=== PATIENT | female | born 1990 | race Caucasian/White ===

== ENCOUNTER 2023-01-12 08:00 | Outpatient (CLI) | payer OTHER | END 2023-01-12 23:59 | disposition home or self-care (01) | LOC: LAB.N 08:00 | PROVIDERS: ATTEND Physician Assistant | DX: R07.0 Pain in throat (principal) | CPT/HCPCS: 87070 ==

== ENCOUNTER 2023-06-02 04:04 | Outpatient (CLI) | payer OTHER | END 2023-06-02 23:59 | disposition critical access hospital (66) | LOC: EMS 04:04 | DX: I16.9 Hypertensive crisis, unspecified (principal); R51.9 Headache, unspecified; R07.9 Chest pain, unspecified; R20.0 Anesthesia of skin; R11.0 Nausea | CPT/HCPCS: A0425; A0427 ==

== ENCOUNTER 2023-06-02 04:43 | Emergency (ER) | payer OTHER ==
--- NOTE | 2023-06-02 04:42 | ED Physician Documentation ---
History of Present Illness - Stated complaint Stated Complaint: HIGH BP - History obtained from History obtained from: Patient - Additonal information Additional information: HPI from patient. COLE. Patient woke at approximately 3 AM this morning with generalized headache, diffuse anterior abdominal pain, nausea and vomiting, and anterior chest pain. She took her blood pressure and had high readings (200s/120s). EMS noted 180s/120s en route. FSBS for EMS 102. Patient says her abdominal pain has some similarities to previous episodes of abdominal pain that have been attributed to ulcerative colitis flares. Patient receives infusions of Entyvio every four weeks but her most recent infusion was overdue by one week due to scheduling problem with infusion nurse; patient thinks her abdominal pain might be related to this. Review of Systems Constitutional: reports: Reviewed and negative Cardiac: reports: Chest pain / pressure. denies: Palpitations Respiratory: reports: Dyspnea. denies: Cough GI: reports: Abdominal Pain, Nausea, Vomiting. denies: Constipation, Diarrhea : denies: Now EGA Neurologic: reports: Headache PD PAST MEDICAL HISTORY - Past Medical History Past Medical History: Yes Other Past Medical History: ulcerative colitis - Allergies Allergies/Adverse Reactions: Allergies Allergy/AdvReac Type Severity Reaction Status Date / Time latex Allergy Unknown Verified 06/02/23 05:46 PD ED PE NORMAL - Vitals Vital signs reviewed: Yes - General General: Alert and oriented X 3, No acute distress, Well developed/nourished - HEENT HEENT: Moist mucous membranes - Neck Neck: Supple, no meningeal sign - Cardiac Cardiac: RRR, No murmur - Respiratory Respiratory: No respiratory distress, Clear bilaterally - Abdomen Abdomen: Soft, Non distended, Other (TTP BLQ, more pronounced LLQ; no rebound nor guarding) - Back Back: No CVA TTP - Derm Derm: Normal color, Warm and dry Results - Vitals Vitals: Vital Signs - 24 hr 06/02/23 06/02/23 06/02/23 04:51 05:00 06:30 Temperature 35.8 C L Heart Rate 78 79 74 Respiratory 22 18 18 Rate Blood Pressure 160/106 H 149/108 H 136/104 H O2 Saturation 99 99 94 06/02/23 08:00 Temperature Heart Rate 85 Respiratory 18 Rate Blood Pressure 144/94 H O2 Saturation 99 Oxygen O2 Source Room air - EKG (time done) No standard instances EKG releavant findings:: EKG personally interpreted by author of this note. Relevant findings are: Rate: Rate (enter#) (79) Rhythm: NSR [place]: Normal Intervals: Normal IN QRS: Normal Ischemia: Normal ST segments - Labs Labs: Laboratory Tests 06/02/23 06/02/23 06/02/23 05:53 05:55 05:55 WBC 9.1 RBC 4.43 Hgb 12.2 Hct 37.4 MCV 84.4 MCH 27.5 MCHC 32.6 RDW 13.6 Plt Count 367 MPV 9.5 Neut # (Auto) 6.1 Lymph # (Auto) 2.1 Butts # (Auto) 0.8 Eos # (Auto) 0.2 Baso # (Auto) 0.1 Absolute Nucleated RBC 0.00 Nucleated RBC % 0.0 Sodium 138 Potassium 3.7 Chloride 104 Carbon Dioxide 28 Anion Gap 6.0 BUN 9 Creatinine 0.6 Estimated GFR (MDRD) 115 Glucose 109 H Calcium 9.7 Total Bilirubin 0.3 AST 14 ALT 11 Alkaline Phosphatase 112 Total Protein 7.5 Albumin 4.4 Globulin 3.1 Albumin/Globulin Ratio 1.4 Lipase 10 L Urine Color YELLOW Urine Clarity CLEAR Urine pH 7.0 Ur Specific [place] 1.010 Urine Protein NEGATIVE Urine Glucose (UA) NEGATIVE Urine Ketones NEGATIVE Urine Occult Blood NEGATIVE Urine Nitrite NEGATIVE Urine Bilirubin NEGATIVE Urine Urobilinogen 0.2 (NORMAL) Ur Leukocyte Esterase NEGATIVE Ur Microscopic Review NOT INDICATED Urine Culture Comments NOT INDICATED Urine HCG, Qual NEGATIVE - Rads (name of study) chest xray Relevant Findings:: Prelim report reviewed, See rad report CT A/P with IV contrast Relevant Findings:: Prelim report reviewed, See rad report PD Medical Decision Making - ED course Complexity details: reviewed results, re-evaluated patient, considered differential, d/w patient ED course: Normal CBC, ER abdominal panel, and UA. Negative UHCG. CT A/P with IV contrast is without concerning or diagnostic finding; specifically, no evidence of infectious or inflammatory process, urinary/ureteral obstruction, intestinal inflammation or obstruction. Patient given 4mg IV morphine early in stay and had good relief of her pain with this. She declined zofran, having had received a dose by EMS en route to ED. Late in ED stay, she had gradual recurrence of abdominal pain and nausea, and thus given redoses of these medications (4mg IV morphine sulfate IV and 4mg IV zofran). Results d/w patient. Cause of her symptoms is not apparent at this time. She reports feeling much better and is comfortable with d/c home, will follow up with her GI specialist as well as PMD regarding her BP. Note that her BP readings declined adequately prior to d/c with 140s/90s prior to d/c. Return precautions discussed. Departure - Departure Disposition: Home, Self Care Clinical Impression: Abdominal pain Qualifiers: Abdominal location: generalized Qualified Code(s): R10.84 - Generalized abdominal pain Condition: Good Instructions: ED Abdominal Pain Female Non-Specific Abdominal Pain, ED Hypertension Conf Out Of Control Comments: There were no concerning nor diagnostic findings on tonight's tests including the blood tests, urinalysis, and the CT scan of your abdomen and pelvis. The EKG also was unremarkable. The cause of your symptoms is not apparent at this time. Follow-up with your primary care provider for reevaluation, next available appointment. The follow- up is not only for reevaluation of the symptoms you experienced today, but also to reevaluate your hypertension and whether your current blood pressure medications are adequately controlling the hypertension. Forms: PCP List Discharge Date/Time: 06/02/23 08:45
--- OUTSIDE RECORDS SUMMARY | 2023-06-02 05:06 | EXTERNAL MEDICAL SUMMARY RPT | Continuity of Care Document ---
Author Name Unknown Address [address] [place] [address] Phone Organization [facility] Address [address] [place] [address] Phone Care Team Providers Care Assistant Professor Of Philosophy Name Role Phone Tanner Duran Unavailable Unavailable Allergies and Intolerances date description facility reaction severity (no date) Mild [facility] (no reaction) (no se verity) (no date) Latex, Natural Rubber [facility] (no react ion) (no severity) Medications date description facility 2023-04-01 00:00 Metoclopramide [facility] 2023-03-17 00:00 Duloxetine [facility] 2023-04-01 00:00 Hydrocodone-Acetaminophen [facility] 2023-03-17 00:00 Labetalol [facility] Problems date description facility 2023-03-17 00:00 Leukocytosis [facility] 2023-03-17 17:14 Elevated white blood cell count , unspecified [facility] 2023-03-17 17:14 Anxiety disorder, unspecified I [facility] 2023-03-17 17:14 Essential (primary) hypertensio n [facility] 2023-03-17 17:14 Ulcerative colitis, unspecified, without complications [facility] 2023-04-01 00:00 Abdominal pain [facility] Procedures date description facility 2023-04-01 00:00 CT abdomen pelvis w [facility] Results/Labs test date facility value unit notes Social History date description facility 2023-03-17 00:00 Never smoked tobacco (finding) [facility] 2023-04-01 00:00 Never smoked tobacco (finding) [facility] Vital Signs date measurement value units 2023-03-17 00:00 BMI 39.2 kg/m2 2023-03-17 00:00 BP_diastolic 100 mmHg 2023-03-17 00:00 BP_systolic 130 mmHg 2023-03-17 00:00 heart_rate 84 /min 2023-03-17 00:00 height_metric 157.48 cm 2023-03-17 00:00 height_standard 62 in 2023-03-17 00:00 o2_saturation 98 % 2023-03-17 00:00 respiration_rate 16 /min 2023-03-17 00:00 temperature_metric 36.56 C 2023-03-17 00:00 temperature_standard 97.8 F 2023-03-17 00:00 weight_metric 97.23 kg 2023-03-17 00:00 weight_standard 214.36 lb 2023-04-01 00:00 BMI 37.5 kg/m2 2023-04-01 00:00 BP_diastolic 84 mmHg 2023-04-01 00:00 BP_systolic 136 mmHg 2023-04-01 00:00 heart_rate 98 /min 2023-04-01 00:00 height_metric 157.48 cm 2023-04-01 00:00 height_standard 62 in 2023-04-01 00:00 o2_saturation 96 % 2023-04-01 00:00 respiration_rate 16 /min 2023-04-01 00:00 temperature_metric 35.61 C 2023-04-01 00:00 temperature_standard 96.1 F 2023-04-01 00:00 weight_metric 92.98 kg 2023-04-01 00:00 weight_standard 204.99 lb
[2023-06-02] MEDS ORDERED: SODIUM CHLORIDE 0.9% 1,000 ML IV STA (05:10)
[2023-06-02] MEDS ORDERED: MORPHINE 2 MG/ML CARPUJECT IVP STA ×2 (05:10→07:32)
[2023-06-02 06:05] LABS: BASOPHILS # (AUTO) 0.1 10^3/uL (0.0-0.1); BASOPHILS % (AUTO) 0.5 %; EOSINOPHILS # (AUTO) 0.2 10^3/uL (0.0-0.7); EOSINOPHILS % (AUTO) 2.2 %; HCT - HEMATOCRIT 37.4 % (37.0-47.0); HGB - HEMOGLOBIN 12.2 g/dL (12.0-16.0); LYMPHOCYTES # (AUTO) 2.1 10^3/uL (1.5-3.5); LYMPHOCYTES % (AUTO) 22.4 %; MEAN CORPUSCULAR HEMOGLOBIN 27.5 pg (27.0-31.0); MEAN CORPUSCULAR HGB CONC 32.6 g/dL (32.0-36.0); MEAN CORPUSCULAR VOLUME 84.4 fL (81.0-99.0); MEAN PLATELET VOLUME 9.5 fL (7.9-10.8); MONOCYTES # (AUTO) 0.8 10^3/uL (0.0-1.0); MONOCYTES % (AUTO) 8.2 %; NEUTROPHILS # (AUTO) 6.1 10^3/uL (1.5-6.6); NEUTROPHILS % (AUTO) 66.4 %; PLT - PLATELET COUNT 367 10^3/uL (130-450); RED BLOOD COUNT 4.43 10^6/uL (4.20-5.40); RED CELL DISTRIBUTION WIDTH 13.6 % (12.0-15.0); WHITE BLOOD COUNT 9.1 x10^3/uL (4.8-10.8)
[2023-06-02 06:08] LABS: BILIRUBIN,URINE NEGATIVE (NEGATIVE); CLARITY,URINE CLEAR (CLEAR); GLUCOSE, URINE (UA) NEGATIVE (NEGATIVE); KETONES,URINE (UA) NEGATIVE (NEGATIVE); LEUKOCYTE ESTERASE, URINE NEGATIVE (NEGATIVE); NITRITE,URINE NEGATIVE (NEGATIVE); OCCULT BLOOD,URINE NEGATIVE (NEGATIVE); PROTEIN,URINE NEGATIVE (NEGATIVE); UROBILINOGEN,URINE 0.2 (NORMAL) E.U./dL (NORMAL)
[2023-06-02 06:09] LABS: HCG UR QUAL NEGATIVE
[2023-06-02 06:24] LABS: ALBUMIN 4.4 g/dL (3.2-5.5); ALBUMIN/GLOBULIN RATIO 1.4 (1.0-2.2); BILIRUBIN,TOTAL 0.3 mg/dL (0.2-1.0); CALCIUM 9.7 mg/dL (8.5-10.3); CREATININE 0.6 mg/dL (0.6-1.3); POTASSIUM 3.7 mmol/L (3.5-4.5); TOTAL PROTEIN 7.5 g/dL (6.4-8.9)
[2023-06-02] MEDS ORDERED: iohexoL-300 100 ML VIAL IVP ONE (07:05)
[2023-06-02] MEDS ORDERED: ONDANSETRON 4 MG/2 ML VIAL IVP STA (07:32)
[2023-06-02 08:53] VITALS: BP 144/94; O2SAT 99
--- NOTE | 2023-06-02 09:06 | XRAY Report ---
PROCEDURE: Chest 2 View X-Ray INDICATIONS: chest pain TECHNIQUE: 2 views of the chest were acquired. COMPARISON: None. FINDINGS: Surgical changes and devices: None. Lungs and pleura: No pleural effusions or pneumothorax. Lungs are clear. Mediastinum: Mediastinal contours appear normal. Heart size is normal. Bones and chest wall: No suspicious bony lesions. Overlying soft tissues appear unremarkable. IMPRESSION: No acute cardiopulmonary process. Reviewed by: Steve Payne MD on 06/02/2023 9:05 AM PDT Approved by: Steve Payne MD on 06/02/2023 9:05 AM PDT Station ID: [id number]
--- NOTE | 2023-06-02 09:12 | CT Report ---
PROCEDURE: ABDOMEN/PELVIS W INDICATIONS: abdominal pain CONTRAST: Omni 300 100ml TECHNIQUE: After the administration of intravenous contrast, 5 mm thick sections acquired from the diaphragms to the symphysis. 5 mm thick coronal and sagittal reformats were acquired. For radiation dose reducti on, the following was used: automated exposure control, adjustment of mA and/or kV according to jerzy ent size. COMPARISON: None FINDINGS: Image quality: Excellent. Lung bases and heart: Unremarkable. Liver: No solid mass. Gallbladder and biliary tree: Surgically absent. No biliary dilation, accounting for post-cholecystec [place] state. Spleen: No splenomegaly. Pancreas: No pancreatic ductal dilation. Adrenals: No adrenal nodule. Kidneys and ureters: No hydronephrosis. No renal cystic lesion which requires follow up. No solid mas s. Bowel and peritoneum: No bowel distension. No pathologic free fluid. Normal appendix. Lymph nodes: No central or retroperitoneal adenopathy. Vessels: No infrarenal aortic aneurysm. PELVIS Reproductive organs: Unremarkable. Bladder: No abnormal wall thickening, accounting for underdistension. Pelvic lymph nodes: No pelvic adenopathy by size criteria. Bones: No aggressive osseous abnormality. Other: No significant ventral or inguinal hernia. IMPRESSION: No acute intra-abdominal findings to explain patient's symptoms. Findings are concordant with preliminary interpretation provided by [facility]. Reviewed by: Steve Payne MD on 06/02/2023 9:10 AM PDT Approved by: Steve Payne MD on 06/02/2023 9:10 AM PDT Station ID: [id number]
== END 2023-06-02 08:45 | disposition home or self-care (01) ==
LOC: ED 04:43
DX: R10.84 Generalized abdominal pain (principal)
CPT/HCPCS: 36415; 71046; 74177; 80053; 81003; 81025; 83690; 85025; 93005; 96374; 96375; 96376; 99283; 99284; Q9967; 81001; 87086

== ENCOUNTER 2024-01-12 15:45 | Outpatient (CLI) | payer OTHER ==
--- NOTE | 2024-01-12 16:05 | Sleep Patient Instructions ---
Sleep Center Visit Summary - Patient Visit Information Reason for Visit: Initial consult for evaluation of sleep disordered breathing and other sleep issues. - Patient Instructions Instructions Attached: Sleep Study, Sleep Study Home Monitor Additional Instructions: You will be completing a sleep study, either an in-lab polysomnography (PSG) or home sleep study (HST). You will follow-up in the sleep care office after the sleep study is completed to hear the results and talk about therapy, if needed. You will be called by our office staff to schedule this appointment, but you may contact us with any questions. - Clinic Information Contact: [facility] [address] [place] [id number] [email or web address] T: [phone]
--- NOTE | 2024-01-12 16:17 | SLEEP CARE CONSULTATION ---
Information from patient questionnaire entered by Erika Garcia. I have reviewed and concur with the information entered by Erika Garcia. This document represents the service I personally performed and the decisions made by me, Patricia Galvez ARNP. History of Present Illness Service Date and Time: 01/12/2024 1600 Reason for Visit: New patient Chief Complaint: reports: Insomnia, Unrefreshed sleep, Excessive daytime sleepiness, Fatigue Date of Onset: 6-8 MONTHS Usual bedtime: 10-11 Time it takes to fall asleep: 30-45MINS Snores at night: Yes Observed to quit breathing while asleep: No Sleeps alone due to snoring: No (only occasionally) Number of times waking at night: 1-2 Reasons for waking at night: reports: Bathroom. denies: Choking, Snoring, Gasping for air Toss, Turn, or Twitch while sleeping: Yes (very restless sleeper) Recalls having dreams: No (she has not had for few years) Usually gets out of bed at: 630-7AM Feels refreshed in the morning: No Morning headache: Yes (1-2 times a month; last about 30-45 minutes; normally resolves with water) Sleepy or fatigued during the day: No Ever fallen asleep while driving: No Takes day naps: No Prior sleep studies: No Additional HPI information: I had the pleasure of seeing CARLIN YEUNG today regarding the possibility of her having a sleep disorder. Her current complaints are insomnia, unrefreshed sleep, excessive daytime sleepiness and fatigue. She says she has had issues with sleep for a long time, worse in the last year. She says her eyes have been more dry in the mornings, sometimes matted up in the last 8 months. She say her eye doctor and he recommended a dry eye mask which has been helping. He told her he thought she was sleeping with her eyes open but her has checked and does not see that her eyes are open when sleeping. She is constantly fatigued during the day but she does not take naps. She says she has trouble falling asleep (averages 30-45 minutes to fall asleep), she is not waking up feeling rested and is exhausted during the day. She has gained some weight and she just does not feel good on a daily basis. He has never heard her stop breathing at night or any gasping/choking sounds. - Parasomnia Symptoms Ever been unable to move upon waking from sleep: No Walks in sleep: No Talks in sleep: No Ever acted out dreams in sleep: No Ever felt weak in the knees when startled or emotional: No Bothered by creepy, crawly, restless sensations in legs: No Problems with memory or concentration: No Subjective Initial [place] Sleepiness Scale score: 7 (12/25/23) Past Medical History Past Medical History: reports: Hypertension, Anemia, Anxiety, GERD, Other (ULCERATIVE COLITIS) Social History The patient's occupation is a NOT EMPLOYED. Patient is and lives in . Have you smoked in the past 12 months: No Alcohol use: Yes Alcohol amount and frequency: 2-3 WEEKS Caffeine use: Yes Caffeine amount and frequency: 1 CRYSTAL LIGHT A DAY Family History Family history of sleep disordered breathing: Yes Family Hx Sleep Apnea: Mother: Snoring, Sleep apnea - Treated, Father: Snoring, Grandparent: Snoring, Sleep apnea - Treated Allergies and Home Medications Known drug allergies: Yes (latex) Drug allergies reviewed: Yes Home medication list reviewed: Yes (as listed) Allergy and home medication list: Allergies latex Allergy (Verified 01/08/24 15:23) Unknown Home Medications Medication Instructions Recorded Confirmed Last Taken Type FLUoxetine [PROzac] See Rx Instructions .ROUTE .COMPLEX 01/12/24 01/12/24 Unknown History Losartan [Cozaar] See Rx Instructions .ROUTE .COMPLEX 01/12/24 01/12/24 Unknown History Vedolizumab [Entyvio Pen] See Rx Instructions .ROUTE .COMPLEX 01/12/24 01/12/24 Unknown History Review of Systems Weight gain over past 5 years: 25 Cardiovascular: reports: high blood pressure, palpitations Gastrointestinal: reports: heartburn, abdominal pain Psychiatric: reports: anxiety. denies: depression Ear/Nose/Throat: reports: tonsillectomy, wisdom teeth removed Musculoskeletal: reports: joint pain, neck pain, back pain Immunologic: denies: allergies to food or environment Physical Exam Vital signs obtained and entered by: ERIKA Dozier MA Blood Pressure: 157/96 (RIGHT ARM) Cuff size: regular Heart Rate: 62 O2 Saturation: 100 Height: 5 ft 2 in Weight: 221 lb Body Mass Index: 40.4 BMI Classification: Morbidly Obese Neck circumference: 16.5 Mouth and throat: narrow oropharynx Soft palate: long Hard palate: normal Uvula: normal Uvula visualization: 25% Mallampati Class III Tongue: enlarged in size with teeth [place] on lateral edges Tonsils: absent bilaterally Neck: normal w/o lymphadenopathy or thyromegaly Heart: regular rate and rhythm Lungs: clear bilaterally Impression and Plan 1. Suspected Obstructive Sleep Apnea-Hypopnea Syndrome, as suggested by a history of loud and irregular snoring, morning headache, frequent awakening during the night, unrefreshed sleep, and excessive daytime sleepiness. Narrow oropharynx and obesity are common predisposing factors for obstructive sleep apnea-hypopnea syndrome. I recommend proceeding to polysomnography to confirm the diagnosis and to assess severity. If the patient has significant sleep disordered breathing, a manual CPAP titration study will also be performed to find the optimal treatment pressure. I informed the patient of what the sleep studies involve and after some discussion, obtained agreement to proceed. The pathophysiology of obstructive sleep apnea-hypopnea syndrome was discussed with the patient and health risks of cardiovascular and cerebrovascular disease if not treated. Risks of drowsy driving discussed in detail and patient advised to avoid long distance driving and to machine puller at the first sign of drowsiness. Patient agreed to plan. * Schedule polysomnography * Avoid long distance driving or driving when feeling sleepy. * Avoid alcohol, sedative and muscle relaxant around bedtime. * Attempt to lose weight. * Review instructions provided by trained office staff on how to prepare for the sleep study. * Return for follow-up after sleep study completed. Counseling Topics: Weight loss health impact Follow up with Sleep Care in: other (after sleep study) Plan: PSG/HST Visit Type: In Office Time Spent with Patient (minutes): 30 Provider Statement: I spent 100% of the Face to Face Visit with the patient with greater than 50% spent counseling the patient and coordination of care.
[2024-01-12 16:23] VITALS: BP 157/96; O2SAT 100
== END 2024-01-12 15:46 | disposition home or self-care (01) ==
LOC: SC 15:45
PROVIDERS: ATTEND Nurse Practitioner Family
DX: R06.83 Snoring (principal); R51.9 Headache, unspecified; G47.8 Other sleep disorders; G47.10 Hypersomnia, unspecified; E66.01 Morbid (severe) obesity due to excess calories; Z68.41 Body mass index [BMI] 40.0-44.9, adult
CPT/HCPCS: 99203; 99212

== ENCOUNTER 2024-02-16 08:56 | Outpatient (CLI) | payer OTHER | END 2024-02-16 08:57 | disposition home or self-care (01) | LOC: SC 08:56 | PROVIDERS: ATTEND Nurse Practitioner Family | DX: R09.02 Hypoxemia (principal) | CPT/HCPCS: 95806 ==

== ENCOUNTER 2024-03-11 10:04 | Outpatient (CLI) | payer OTHER ==
--- NOTE | 2024-03-11 10:32 | Sleep Patient Instructions ---
Sleep Center Visit Summary - Patient Visit Information Reason for Visit: Sleep study follow-up - Patient Instructions Additional Instructions: Your sleep study today was negative for significant sleep disordered breathing. However, your study was fair to poor due to loss of pulse oximetry signal and I recommend you repeat study in the sleep lab. You will be completing a sleep study in-lab polysomnography (PSG). You will follow-up in the sleep care office after the sleep study is completed to hear the results and talk about therapy, if needed. You will be called by our office staff to schedule this appointment, but you may contact us with any questions. - Clinic Information Contact: [facility] [address] [place] [address] [email or web address] T: [phone]
--- NOTE | 2024-03-11 10:37 | SLEEP CARE CONSULTATION ---
Information from patient questionnaire entered by Dori Garcia. I have reviewed and concur with the information entered by Dori Garcia. This document represents the service I personally performed and the decisions made by , Patricia Galvez ARNP. History of Present Illness Service Date and Time: 03/11/2024 1004 Initial [place] Sleepiness Scale score: 7 (12/25/23) Current [place] Sleepiness Scale score: 7 Additional HPI information: CARLIN YEUNG returns for follow up and results of the recently performed home sleep study. The patient was informed of the following findings: No significant sleep disordered breathing with an average AHI of 1.8 and stephanie oxygen saturation of 88%. However, the sleep study was fair to poor due to frequent loss/unreliable signal of pulse oximetry on night of study. I explained the pathophysiology behind obstructive sleep apnea. Patient does not have sleep apnea and was advised how weight gain could increase the risk of developing sleep apnea in the future. I strongly encouraged the patient to lose weight. Patient has snoring. Snoring can be reduced by weight loss. Snoring can also be treated with an oral appliance from a dentist. Advised to check insurance coverage. In addition, an ENT evaluation can be do to see if other treatment is indicated. Patient counseled not drink alcohol less than 4 hours before bedtime as it can increase snoring and apnea. Patient was cautioned about risks of drowsy driving until sleepiness symptoms resolve. Patient denies drowsy driving. Sleep Study - Results Type of Sleep Study: Home sleep study (COMPLETED 02/16/24) Prior sleep studies: No Polysomnography/Home Sleep Study results: Physician Impression: The quality of the study is [id number] due to frequent loss/unreliable of pulse oximetry signal. The length of the study is adequate (> 240 minutes). Please also see the tabulated and graphic data. 1. Obstructive Sleep Apnea-Hypopnea (ICD-10 G47.33), none, with an AHI of 1.8/hr and stephanie SaO2 of 88%. During the study, the patient had 5 apneas (5 obstructive, 0 central, 0 mixed) and 7 hypopneas. The longest episode lasted 50.0 seconds. The respiratory events occurred more frequently during supine sleep (supine AHI was 1.6 and non-supine, 1.89). 2. Hypoxemia (ICD-10 R09.02), minimal, with the lowest oxygen saturation of 88 % and 4.8 minutes with SaO2 under 90%. Baseline oxygen saturation was normal (Average oxygen saturation was 97%). Allergies and Home Medications Known drug allergies: Yes (as listed) Drug allergies reviewed: Yes Home medication list reviewed: Yes (no changes) Allergy and home medication list: Allergies latex Allergy (Verified 03/09/24 11:08) Unknown Review of Systems Review of systems same as previous: Yes (no changes) Physical Exam Vital signs obtained and entered by: PATRICIA MIX-Jacoby Blood Pressure: 117/77 Cuff size: wrist (right) Heart Rate: 71 O2 Saturation: 99 Height: 5 ft 2 in Weight: 223 lb Body Mass Index: 40.8 BMI Classification: Morbidly Obese Impression and Plan 1. Suspected Obstructive Sleep Apnea-Hypopnea Syndrome, as suggested by a history of loud and irregular snoring, morning headache, frequent awakening during the night, unrefreshed sleep, and excessive daytime sleepiness. Her HST was fair to poor quality due to frequent loss of pulse oximetry signal. I recommend proceeding to in lab polysomnography to confirm the diagnosis and to assess severity. I obtained agreement to proceed. The pathophysiology of obstructive sleep apnea-hypopnea syndrome was discussed with the patient and health risks of cardiovascular and cerebrovascular disease if not treated. Risks of drowsy driving discussed in detail and patient advised to avoid long distance driving and to puller out at the first sign of drowsiness. Patient agreed to plan. 2. Snoring but no significant sleep disordered breathing. Patient advised that often weight loss will reduce snoring as well as apnea risk. An oral appliance can also be used for snoring. This would require a dental consultation. Patient cautioned not to use other online appliances as can cause bite issues. Patient is advised to check if insurance will cover. An ENT consult can also be helpful to determine if any other treatment is an option. * Schedule polysomnography. * Avoid long distance driving or driving when feeling sleepy. * Avoid alcohol, sedative and muscle relaxant around bedtime. * Attempt to lose weight. * Review instructions provided by trained office staff on how to prepare for the sleep study. * Return for follow-up after sleep study completed. Counseling Topics: Weight loss health impact Plan: in lab PSG and follow up Visit Type: In Office Time Spent with Patient (minutes): 20 Provider Statement: I spent 100% of the Face to Face Visit with the patient with greater than 50% spent counseling the patient and coordination of care.
[2024-03-11 10:41] VITALS: BP 117/77; O2SAT 99
== END 2024-03-11 10:05 | disposition home or self-care (01) ==
LOC: SC 10:04
PROVIDERS: ATTEND Nurse Practitioner Family
DX: R06.83 Snoring (principal); G47.8 Other sleep disorders; R51.9 Headache, unspecified; G47.10 Hypersomnia, unspecified; E66.01 Morbid (severe) obesity due to excess calories; Z68.41 Body mass index [BMI] 40.0-44.9, adult
CPT/HCPCS: 99212; 99213